=== PATIENT | male | born 1950 | race Caucasian/White ===

== ENCOUNTER 2025-01-06 14:27 | Emergency (ER) | payer MEDICAID, SELFPAY ==
[2025-01-06] VITALS (7 sets, daily range): BP systolic 118–148; BP diastolic 60–71; PULSE 76–89; RESP 14–18; TEMP 36.8; O2SAT 96–100; BMI 29.0
--- NOTE | 2025-01-06 14:36 | CTR_ITS ---
PROCEDURE INFORMATION: Exam: CTA Abdominal Aorta and Bilateral Lower Extremities (Run-off) With Contrast Exam date and time: 01/06/2025 4:38 PM Age: 74 years old Clinical indication: Condition or disease; Vascular insufficiency, intestinal; Prior surgery; Surgery date: 6+ months; Surgery type: Colostomy; Additional info: Bilateral leg pain/ coolness in feet/ recent trauma TECHNIQUE: Imaging protocol: Computed tomographic angiography of the of the abdominal aorta, pelvis and bilateral lower extremities with contrast. 3D rendering (Not supervised by radiologist): MIP and/or 3D reconstructed images were created by the technologist. Radiation optimization: All CT scans at this facility use at least one of these dose optimization techniques: automated exposure control; mA and/or kV adjustment per patient size (includes targeted exams where dose is matched to clinical indication); or iterative reconstruction. Contrast material: OMNIPAQUE 350; Contrast volume: 100 ml; Contrast route: INTRAVENOUS (IV); COMPARISON: CT lumbar spine wo con* [id number] 06/01/2025 16:38 RADIATION DOSE METRICS: Total DLP (mGy-cm): 1003.1 FINDINGS: Aorta: No aortic aneurysm. No aortic dissection. Mild atherosclerotic calcification is seen in the origin of the bilateral common iliac arteries. Celiac trunk and mesenteric arteries: No occlusion or significant stenosis. Renal arteries: No occlusion or significant stenosis. Right iliac arteries: No occlusion or significant stenosis. Minimal atherosclerotic calcification is seen at the bifurcation of the external and internal iliac arteries. Right femoral/popliteal arteries: No occlusion or significant stenosis. Right infrapopliteal arteries: No occlusion or significant stenosis. Left iliac arteries: No occlusion or significant stenosis. Minimal atherosclerotic calcification is seen at the bifurcation of the external/internal iliac arteries. Left femoral/popliteal arteries: No occlusion or significant stenosis. Left infrapopliteal arteries: No occlusion or significant stenosis. Liver: No mass. Gallbladder and biliary ducts: Surgically absent with clips in the gallbladder fossa. Pancreas: Mildly atrophic. No mass. No ductal dilation. Spleen: Enlarged at 13 cm. Adrenal glands: Bilateral adrenal lesions. Right adrenal gland measures 3.0 x 1.4 cm. The left adrenal gland demonstrates a small nodular density at 1.1 cm. Kidneys and ureters: Normal. No mass. Stomach and bowel: Right midline abdominopelvic ostomy. No obstruction. No mucosal thickening. Appendix: No evidence of appendicitis. Urinary bladder: Nondistended with Sanderson balloon catheter. No mass identified. Reproductive: Unremarkable as visualized. Intraperitoneal space: Unremarkable. No free air. No significant fluid collection. Lymph nodes: No lymphadenopathy. Bones/joints: Osteoarthritic/degenerative changes are noted to involve both knees with narrowing of the medial compartments. Also seen are remote posttraumatic changes involving the left to a greater degree than right tibial plateaus with inferior depression of the fracture fragment on the left lateral tibial plateau of 1 cm. Soft tissues: Right of midline abdominopelvic ostomy. CT/CT angio abd aorta runof [id number] IMPRESSION: 1. Splenomegaly 13 cm. 2. Right abdominopelvic ostomy with rectal stump in place. 3. No gross evidence of hemodynamic significant stenoses. 4. Consider correlation with Doppler lower extremity arterial ultrasound. 5. Markedly severe/significant subacute posttraumatic changes with depression/displacement involving the left knee/tibial plateau and nondisplaced fracture left talus. COMMENTS: THIS REPORT CONTAINS FINDINGS THAT MAY BE CRITICAL TO PATIENT CARE. The exam findings were verbally communicated by me to Lamin HARRIS via telephone conference at 6:40 PM CDT on 01/06/2025. The findings were acknowledged and understood.
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
--- NOTE | 2025-01-06 14:56 | PC.PHAR ---
PATIENT IS FROM [place]
[2025-01-06] MEDS: HYDROmorphone 0.5 MG/0.5 ML INJ IVP ×3 (15:02→20:30)
[2025-01-06 15:23] LABS: Basophils % 0.3 %; Eosinophils # 0.1 10^3/uL (0.0-0.8); Eosinophils % 0.5 %; Hematocrit 33.2 % (37-53); Lymphocytes # 4.6 10^3/uL (0.8-4.8); Lymphocytes % 36.6 %; Mean Corpuscular HGB Conc 31.9 g/dL (30-55); Mean Corpuscular Hemoglobin 28.3 pg (27-33); Mean Corpuscular Volume 88.5 fl (82-101); Mean Platelet Volume 9.4 fL (7.4-10.4); Monocytes # 0.7 10^3/uL (0.2-0.9); Monocytes % 5.8 %; Neutrophils # 6.98 10^3/uL (1.8-7.7); Neutrophils % 55.4 %; Nucleated Red Blood Cells % 0 %; Platelet Count 258 10^3/cmm (157-399); Red Blood Count 3.75 10^6/uL (3.85-5.65); Red Cell Distribution Width 13.6 % (12.1-15.1); White Blood Count 12.58 10^3/uL (3.29-11.43)
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
[2025-01-06 15:39] LABS: Alanine Aminotransferase 21 U/L (0-41); Albumin Level 2.9 g/dL (3.5-5.2); Alkaline Phosphatase 331 U/L (40-130); Anion Gap 17.3 (5-19); Aspartate Amino Transferase 22 U/L (0-40); Blood Urea Nitrogen 10 mg/dL (8-23); Carbon Dioxide 22 mmol/L (22-29); Chloride 102 mmol/L (98-107); Creatinine Clr Calc Pharmacy 83.7472; Globulin 2.7 g/dL (1.3-4.6); Glucose 94 mg/dL (65-115); INR 1.02 (0.8-1.2); Osmolality Calculated 283 mOsm/kg (285-295); Potassium 4.3 mmol/L (3.5-5.1); Sodium 137 mmol/L (136-145); Total Bilirubin 0.2 mg/dL (0.15-1.2); Total Protein 5.6 g/dL (6.6-8.7)
[2025-01-06 15:40] LABS: Partial Thromboplastin Time 24.1 SECONDS (23.9-36.7)
[2025-01-06] MEDS: iohexol 350 mg/mL 500 mL Btl (per mL) IV (16:47)
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
== END 2025-01-06 21:08 | disposition short-term general hospital (02) ==
PROVIDERS: Emergency Provider Physician Assistant
DX: S82.142A Displaced bicondylar fracture of left tibia, initial encounter for closed fracture (principal); S92.102A Unspecified fracture of left talus, initial encounter for closed fracture; M79.604 Pain in right leg; X58.XXXA Exposure to other specified factors, initial encounter
CPT/HCPCS: 72131; 75635; 80053; 85025; 85610; 85730; 93925; 96374; 96376; 99285; J1171